=== PATIENT | male | born 2000 | race Two or more races ===

== ENCOUNTER 2020-09-07 11:46 | Emergency (ER) | payer SELFPAY ==
[~2020-09-07] VITALS: Ht 175.3 cm; Wt 78.3 kg
[2020-09-07 12:23] LABS: BASOPHILS % (AUTO) 0 % (0-1); EOSINOPHILS % (AUTO) 2 % (1-7); LYMPHOCYTES % (AUTO) 29 % (22-44); MEAN CORPUSCULAR HEMOGLOBIN 31.4 pg (27.5-34.5); MEAN CORPUSCULAR HGB CONC 34.3 g/dL (33.2-36.2); MEAN PLATELET VOLUME 7.4 fL (7.4-10.4); MONOCYTES % (AUTO) 8 % (2-9); NEUTROPHILS % (AUTO) 61 % (42-75); PLATELET COUNT 351 x10^3/uL (130-400); RED BLOOD COUNT 4.98 x10^6/uL (4.38-5.82); RED CELL DISTRIBUTION WIDTH 13.6 % (9.4-14.8)
[2020-09-07 12:33] LABS: ALANINE AMINOTRANSFERASE 19 U/L (12-78); ANION GAP 5 mmol/L (5-15); CALCIUM 9.1 mg/dL (8.5-10.1); CHLORIDE 108 mmol/L (98-107); CREATININE 1.14 mg/dL (0.7-1.3)
[2020-09-07 12:35] LABS: ALKALINE PHOSPHATASE 117 U/L (45-117); BILIRUBIN,TOTAL 1.7 mg/dL (0.2-1.0); TOTAL PROTEIN 7.9 g/dL (6.4-8.2)
--- NOTE | 2020-09-07 13:49 | NUR ---
Lab results reviewed by interpretative dancer. Awaiting UA sample to send and ED room assignment. farm equipment service technician going to reassess VS in lobby at this time and will report back with results to interpretative dancer.
[2020-09-07 15:30] LABS: MICROSCOPIC INDICATED
[2020-09-07] MEDS ORDERED: KETOROLAC 30 MG/1 ML IM ONE (16:00)
[2020-09-07] MEDS ORDERED: KETOROLAC 60 MG/2 ML ONE (16:01)
[2020-09-07 17:09] VITALS: BP 122/65
== END 2020-09-07 17:11 | disposition home or self-care (01) ==
LOC: EDBD 11:46 → ED 12:16
DX: M94.0 Chondrocostal junction syndrome [Tietze] (principal); R07.89 Other chest pain
CPT/HCPCS: 36415; 71046; 80053; 81001; 83690; 85025; 87086; 93005; 96372; 99285; J1885